=== PATIENT | male | born 1990 | race Caucasian/White ===

== ENCOUNTER 2020-03-15 18:58 | Emergency (ER) | payer SELFPAY ==
[~2020-03-15] VITALS: Ht 182.9 cm; Wt 74.8 kg
[2020-03-15] MEDS ORDERED: HYDROcodone-ACET 10/325MG TAB PO ONE (19:45)
[2020-03-15 20:29] VITALS: BP 137/72
== END 2020-03-15 20:31 | disposition home or self-care (01) ==
LOC: ER 19:01
DX: S52.122A Displaced fracture of head of left radius, initial encounter for closed fracture (principal); X58.XXXA Exposure to other specified factors, initial encounter; Y93.51 Activity, roller skating (inline) and skateboarding; Y92.89 Other specified places as the place of occurrence of the external cause; Y99.8 Other external cause status
CPT/HCPCS: 29505; 73070